=== PATIENT | female | born 1975 | race Caucasian/White ===

== ENCOUNTER → 2018-10-08 | Outpatient (CLI) | payer OTHER ==
[2018-10-08 10:45] LABS: HCT 42.6 % (34.0-46.0); HGB 13.7 gm/dL (11.4-16.0); MCHC 32.1 g/dL (31.0-37.0); MCV 87.1 fL (80.0-100.0); Mean Platelet Volume 6.6; Platelet Count 389 k/uL (150-450); RBC 4.89 m/uL (3.80-5.40); RDW 13.6 % (11.5-15.5); WBC 13.5 k/uL (3.8-10.6)
[2018-10-08 16:40] LABS: African American GFR (CKD) 106.1 (60.0-200.0); Albumin 4.4 g/dL (3.80-4.90); Albumin/Globulin Ratio 1.83 (1.60-3.17); Anion Gap 10.4 mmol/L (4.00-12.00); Calcium 9.4 mg/dL (8.7-10.3); Carbon Dioxide 23.6 mmol/L (21.6-31.8); Globulin 2.4 g/dL (1.6-3.3); LDL Cholesterol,Calculated 133.8 mg/dL (0.0-131.0); Potassium 4.3 mmol/L (3.5-5.5); Total Bilirubin 0.6 mg/dL (0.2-1.2); Total Protein 6.8 g/dL (6.2-8.2); VLDL Calculation 21.2 mg/dL (5.00-40.00)
== END | disposition home or self-care (01) ==
LOC: LABWHC1 10:08
PROVIDERS: ATTEND Internal Medicine
DX: E78.00 Pure hypercholesterolemia, unspecified (principal); M25.562 Pain in left knee; M25.561 Pain in right knee
CPT/HCPCS: 36415; 80053; 80061; 84443; 85027

== ENCOUNTER → 2018-11-10 | Outpatient (CLI) | payer OTHER ==
[2018-11-10 11:46] LABS: Basophils # (A) 0.1 k/uL (0-0.2); Basophils % (A) 1 %; Eosinophils # (A) 0.3 k/uL (0-0.7); Eosinophils % (A) 2 %; HCT 46.4 % (34.0-46.0); HGB 14.5 gm/dL (11.4-16.0); Lymphocytes # (A) 3.4 k/uL (1.0-4.8); Lymphocytes % (A) 23 %; MCHC 31.3 g/dL (31.0-37.0); MCV 89.6 fL (80.0-100.0); Mean Platelet Volume 6.9; Monocytes # (A) 0.4 k/uL (0-1.0); Monocytes % (A) 3 %; Neutrophils # (A) 10.1 k/uL (1.3-7.7); Neutrophils % (A) 71 %; Platelet Count 350 k/uL (150-450); RBC 5.18 m/uL (3.80-5.40); RDW 15.2 % (11.5-15.5); WBC 14.4 k/uL (3.8-10.6)
== END | disposition home or self-care (01) ==
LOC: LABWHC1 10:55
PROVIDERS: ATTEND Internal Medicine
DX: M25.561 Pain in right knee (principal)
CPT/HCPCS: 36415; 85025

== ENCOUNTER → 2018-11-30 | Outpatient (CLI) | payer OTHER ==
--- NOTE | 2018-11-30 22:39 | MR ---
EXAMINATION TYPE: MR knee LT wo con DATE OF EXAM: 11/30/2018 COMPARISON: NONE HISTORY: Pain for 10 years. Internal derangements and primary osteoarthritis per order. TECHNIQUE: Multiplanar, multisequence images of the knee is performed without IV contrast. FINDINGS: MEDIAL MENISCUS: Anterior and posterior horns are intact without tear. LATERAL MENISCUS: Anterior and posterior horns are intact without tear. CRUCIATE LIGAMENTS: The anterior and posterior cruciate ligaments are intact. Increased signal in the anterior cruciate ligament is present. COLLATERAL LIGAMENTS: The medial collateral ligament and lateral collateral ligament complex are inta ct and unremarkable. EXTENSOR MECHANISM: Visualized quadriceps and patellar tendons are intact. EFFUSION: No significant suprapatellar joint effusion. POPLITEAL CYST: No popliteal/perkins cyst. TRICOMPARTMENT SPACES: Moderate to severe narrowing patellofemoral compartment most prominent inferio rly with mild to moderate spurring. Mild spurring medial and lateral tibiofemoral compartments. CARTILAGE: Areas of full-thickness chondromalacia patella. BONE MARROW SIGNAL: Areas of heterogeneous increased T2 signal involving the patella fairly diffusely with more prominent posterior change axial image 19. OTHER: No additional significant abnormality is appreciated. IMPRESSION: 1. No meniscal or ligamentous tear is seen. 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 2. 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
== END | disposition home or self-care (01) ==
LOC: RADMRIMAIN 20:14
PROVIDERS: ATTEND Physician Assistant
DX: M17.0 Bilateral primary osteoarthritis of knee (principal)

== ENCOUNTER → 2018-12-08 | Outpatient (CLI) | payer OTHER ==
[2018-12-08 14:27] VITALS: BP 137/62; PULSE 80; RESP 16; TEMP 98.6; BMI 36.8
--- NOTE | 2018-12-08 15:35 | P.HPBAR ---
Bariatric H&P - History & Physicial H&P Date: 12/08/18 History & Physicial: Visit/CC: Initial Visit Patient initial contact: Initial weight: 101.86 kg Initial weight in pounds: 224.56 Height: 5 ft 5.5 in Initial BMI: 36.8 Last weight: Current weight: 101.86 kg Current weight in pounds: 224.56 Current BMI: 36.8 [place] body weight (based on NIH guidelines): 57.833 kg Excess body weight loss: 0.0% The patient is a 43 year-old F who presents for Bariatric Assessment. Patient presents as a new patient bariatric evaluation. Interested in sleeve gastrectomy at this time. Has struggled with her weight since her early use. Currently BMI 36.8. Patient complains of knee pain, arthritis, foot pain. Denies GERD symptoms. No DVT or dysphagia. Has trouble with portion control. Quit tobacco 2 years ago. He has been dieting for the last year or so has only been able to lose approximately 11 pounds. Review of Systems The patient denies any acute changes in vision or hearing, no dysphagia or odynophagia, no chest pain or shortness of breath, no dysuria or hematuria, no headache, no runny nose, no rectal bleeding or melena, no unexplained weight loss Past Medical History Past Medical History: Osteoarthritis (OA) Additional Past Medical History / Comment(s): bilateral osteoarthritis History of Any Multi-Drug Resistant Organisms: None Reported Past Surgical History: No Surgical Hx Reported Additional Past Surgical History / Comment(s): [place] teeth extractions with local anesthesia, Past Anesthesia/Blood Transfusion Reactions: No Reported Reaction Additional Past Anesthesia/Blood Transfusion Reaction / Comm: No blood transfusion to date, No hx of general anesthesia to date, No family hx of problems w/anesthesia to date Past Psychological History: No Psychological Hx Reported Smoking Status: Former smoker Past Alcohol Use History: Occasional Additional Past Alcohol Use History / Comment(s): quit smoking 2017 (started smoking around age 18 to age 22, restarted at age 24 til 41, 1ppd) Past Drug Use History: None Reported - Past Family History Father Family Medical History: Hypertension Mother Family Medical History: No Reported History Surgical - Exam Vital Signs Temp Pulse Resp BP 98.6 F 80 16 137/62 12/08/18 14:21 12/08/18 14:21 12/08/18 14:21 12/08/18 14:21 Physical exam: General: Well-developed, well-nourished HEENT: Normocephalic, sclerae nonicteric Abdomen: Nontender, nondistended Extremities: No edema Neuro: Alert and oriented Bariatric Assessment & Plan (1) Morbid obesity Narrative/Plan: Surgical options in the associate risks discussed in detail with the patient. Patient remains interested in sleeve gastrectomy. Patient does require 6 month supervised weight loss. She has already began that. Follow-up 2-3 months for EGD. Status: Acute Bariatric Checklist Checklist: Plan: Checklist: EGD: 1. Hiatal hernia: 2. H. Pylori: HgbA1c: Vitamin D: Smoking: Former smoker Primary care physician referral: Dr. Bolaños Psychiatry clearance: Cardiology clearance: Sleep study: Diet journal: VTE risk score: VTE risk level: Rehab needs at discharge:
[2018-12-08 16:13] LABS: HCT 45.4 % (34.0-46.0); MCH 28.8 pg (25.0-35.0); MCV 87.1 fL (80.0-100.0); Mean Platelet Volume 6.6; Platelet Count 394 k/uL (150-450); RBC 5.22 m/uL (3.80-5.40); RDW 13.9 % (11.5-15.5); WBC 17.6 k/uL (3.8-10.6)
[2018-12-09 00:25] LABS: African American GFR (CKD) 106.1 (60.0-200.0); Albumin 4.5 g/dL (3.80-4.90); Albumin/Globulin Ratio 1.73 (1.60-3.17); Anion Gap 8.5 mmol/L (4.00-12.00); Calcium 9.4 mg/dL (8.7-10.3); Carbon Dioxide 27.5 mmol/L (21.6-31.8); Globulin 2.6 g/dL (1.6-3.3); Potassium 3.8 mmol/L (3.5-5.5); Total Bilirubin 0.3 mg/dL (0.3-1.2); Total Protein 7.1 g/dL (6.2-8.2)
[2018-12-09 00:31] LABS: Folate, Serum 7.6 ng/mL; Vitamin D 25 Hydroxy 24.1 ng/mL (30.0-100.0)
[2018-12-09 00:54] LABS: Hemoglobin A1C 5.4 % (4.0-6.0)
== END ==
LOC: BARWHC3 13:47
PROVIDERS: ATTEND Surgery
DX: E66.01 Morbid (severe) obesity due to excess calories (principal); K90.89 Other intestinal malabsorption; E55.9 Vitamin D deficiency, unspecified; Z87.891 Personal history of nicotine dependence; Z68.36 Body mass index [BMI] 36.0-36.9, adult
CPT/HCPCS: 84425; 80053; 82607; 82746; 83540; 85027; 82306; 83036; 93005; 36415; G0463; 99201

== ENCOUNTER → 2019-01-04 | Outpatient (CLI) | payer OTHER ==
[2019-01-04 14:42] LABS: Basophils # (A) 0.1 k/uL (0-0.2); Basophils % (A) 1 %; Eosinophils # (A) 0.4 k/uL (0-0.7); Eosinophils % (A) 2 %; HCT 44.8 % (34.0-46.0); HGB 14.7 gm/dL (11.4-16.0); Lymphocytes % (A) 25 %; MCH 28.8 pg (25.0-35.0); MCHC 32.8 g/dL (31.0-37.0); MCV 87.8 fL (80.0-100.0); Mean Platelet Volume 6.6; Monocytes # (A) 0.5 k/uL (0-1.0); Monocytes % (A) 3 %; Neutrophils % (A) 68 %; Platelet Count 368 k/uL (150-450); RDW 13.9 % (11.5-15.5); WBC 16.2 k/uL (3.8-10.6)
[2019-01-04 20:08] LABS: Iron Saturation 17.09 (12.00-45.00)
[2019-01-04 20:16] LABS: Ferritin 65.4 ng/mL (10.0-291.0)
== END | disposition home or self-care (01) ==
LOC: LABWHC1 14:08
PROVIDERS: ATTEND Internal Medicine
DX: E61.1 Iron deficiency (principal); D72.828 Other elevated white blood cell count
CPT/HCPCS: 36415; 82728; 83540; 83550; 85025

== ENCOUNTER 2019-01-29 10:07 | Day surgery (SDC) | payer OTHER ==
[2019-01-28 09:13] VITALS: BMI 36.8
[2019-01-29 10:27] VITALS: TEMP 98.7
[2019-01-29] MEDS ORDERED: LIDOCAINE 1% 20 ML VIAL (10MG/ML) FOR IV START INTRADERMA ONE (10:34)
[2019-01-29] MEDS: LACTATED RINGERS 1,000 ML IV SCH ×2 (10:34→10:41)
[2019-01-29] MEDS ORDERED: PROPOFOL 10 MG/ML 20 ML VIAL IV ONE (10:45)
--- NOTE | 2019-01-29 10:56 | P.GSHP ---
History of Present Illness H&P Date: 01/29/19 Chief Complaint: GERD 43-year-old female known to our service. Patient being worked up for sleep gastrectomy. Mild reflux symptoms that time. No dysphagia. Past Medical History Past Medical History: Osteoarthritis (OA) Additional Past Medical History / Comment(s): bilateral osteoarthritis History of Any Multi-Drug Resistant Organisms: None Reported Additional Past Surgical History / Comment(s): [place] teeth extractions with local anesthesia, Past Anesthesia/Blood Transfusion Reactions: No Reported Reaction Additional Past Anesthesia/Blood Transfusion Reaction / Comment(s): No blood transfusion to date, Smoking Status: Former smoker - Past Family History Father Family Medical History: Hypertension Mother Family Medical History: Cancer Additional Family Medical History / Comment(s): SKIN CANCER Medications and Allergies Home Medications Medication Instructions Recorded Confirmed Type Ergocalciferol [Vitamin D2] 50,000 unit PO WE 01/28/19 01/29/19 History Terbinafine HCl [LamISIL] 250 mg PO DAILY 01/28/19 01/29/19 History Allergies Allergy/AdvReac Type Severity Reaction Status Date / Time No Known Allergies Allergy Verified 01/29/19 10:18 Surgical - Exam Vital Signs Temp Pulse Resp BP Pulse Ox 98.7 F 75 16 147/77 96 01/29/19 10:25 01/29/19 10:25 01/29/19 10:25 01/29/19 10:25 01/29/19 10:25 Physical exam: General: Well-developed, well-nourished HEENT: Normocephalic, sclerae nonicteric Abdomen: Nontender, nondistended Extremities: No edema Neuro: Alert and oriented Assessment and Plan (1) GERD (gastroesophageal reflux disease) Narrative/Plan: Will proceed with upper endoscopy at this time Current Visit: Yes Status: Acute Code(s): K21.9 - GASTRO-ESOPHAGEAL REFLUX DISEASE WITHOUT ESOPHAGITIS SNOMED Code(s): 733794815
--- NOTE | 2019-01-29 11:02 | P.PCN ---
Date of Procedure: 01/29/19 Procedure(s) Performed: Preoperative Dx: GERD, presurgical Postoperative Dx: Mild gastritis Procedure: EGD with Bx Anesthesia: Sedation Endoscopist: Dr. Aguayo Specimens: Antrum Endoscopic Procedure: The patient was on the endoscopy table in the left decubitus position. The Olympus gastroscope was inserted into the oropharynx and passed under direct visualization to the region of the third portion of the duodenum. From that point the scope was slowly withdrawn inspecting all surfaces carefully. There were no neoplastic inflammatory or polypoid lesions throughout the duodenum. The pylorus was widely patent. The stomach was carefully inspected. There was gastritis present. A biopsy of the antrum took place to rule out H. pylori. Retroflexion revealed a normal hiatus. The esophagus was then carefully examined. There were no neoplastic inflammatory or polypoid lesions throughout the visualized esophagus. The patient was then taken to the recovery room in stable condition per anesthesia guidelines. Recommendations: Await biopsy results. Follow-up bariatric clinic 6 weeks.
[2019-01-29 11:36] VITALS: RESP 18
[2019-01-29 11:37] VITALS: BP 129/80; PULSE 67
== END 2019-01-29 11:58 | disposition home or self-care (01) ==
LOC: ORWHC2ENDO 10:07
PROVIDERS: ATTEND Surgery
DX: K29.50 Unspecified chronic gastritis without bleeding (principal); K21.9 Gastro-esophageal reflux disease without esophagitis; E66.9 Obesity, unspecified; Z68.36 Body mass index [BMI] 36.0-36.9, adult; M19.90 Unspecified osteoarthritis, unspecified site; Z87.891 Personal history of nicotine dependence; Z82.49 Family history of ischemic heart disease and other diseases of the circulatory system; Z80.8 Family history of malignant neoplasm of other organs or systems; Z79.899 Other long term (current) drug therapy
CPT/HCPCS: 81025; 88305; 43239; J2704

== ENCOUNTER → 2019-02-22 | Outpatient (CLI) | payer OTHER ==
--- NOTE | 2019-02-22 09:45 | MM ---
Reason for exam: screening (asymptomatic). Baseline mammogram. History: Patient had first child at age 36. Physical Findings: Nurse did not find any significant physical abnormalities on exam. [facility] Diagnostic Mammo w CAD [place] Bilateral CC and MLO view(s) were taken. The breast tissue is heterogeneously dense. This may lower the sensitivity of mammography. Focal asymmetry left upper outer quadrant. These results were verbally communicated with the patient and result sheet given to the patient on 02/22/19. ASSESSMENT: Incomplete: need additional imaging evaluation, BI-RAD 0 RECOMMENDATION: Ultrasound of the left breast. (upper outer quadrant)
--- NOTE | 2019-02-22 09:49 | USB ---
Reason for exam: additional evaluation requested from abnormal screening. History: Patient had first child at age 36. Physical Findings: Breast exam preformed at baseline screening. US Breast Limited LT Left limited breast ultrasound including focal area of concern, retroareolar and axilla demonstrates no cystic or solid lesion seen. No suspicious sonographic finding. Dense tissue corresonds to the focal asymmetry. These results were verbally communicated with the patient and result sheet given to the patient on 02/22/19. ASSESSMENT: Negative, BI-RAD 1 RECOMMENDATION: Routine screening mammogram of both breasts in 1 year.
== END | disposition home or self-care (01) ==
LOC: RADMAMWWP 08:18
PROVIDERS: ATTEND Internal Medicine
DX: R92.8 Other abnormal and inconclusive findings on diagnostic imaging of breast (principal); N64.4 Mastodynia
CPT/HCPCS: 77066

== ENCOUNTER → 2019-03-16 | Outpatient (CLI) | payer OTHER ==
[2019-03-16 15:26] VITALS: BP 146/85; PULSE 87; RESP 16; TEMP 97.8; BMI 36.9
--- NOTE | 2019-03-16 16:03 | P.BASOAP ---
Subjective Progress Note Date: 03/16/19 Principal diagnosis: Morbid obesity Patient is known to our service. She is being worked up for upcoming sleeve gastrectomy. Underwent EGD 01/29 showing mild gastritis. She has had some very slight weight gain during her supervised weight loss program. He has not been cleared for surgery yet for that reason. Since last visit patient's weight 1 from 224.9-225.6. Has an upcoming a plane with her primary care physician next month. Does describe a chronic leukocytosis which has previously been worked up. Objective - Vital Signs Vital signs: Vital Signs Temp 97.8 F 03/16/19 15:19 Pulse 87 03/16/19 15:19 Resp 16 03/16/19 15:19 BP 146/85 03/16/19 15:19 Pulse Ox Intake & Output 03/15/19 03/16/19 03/16/19 18:59 06:59 18:59 Weight 102.228 kg - Exam Abdomen: Soft, nontender, nondistended Assessment/Plan (1) Morbid obesity Narrative/Plan: Patient still interested in sleeve gastrectomy. She and I went over the surgical consent form in detail. All questions answered. The risks of bleeding, infection, stenosis, stricture, leak, abscess, fistula formation, peritonitis, poor weight loss, reflux, vomiting, conversion to an open procedure, aborting sleeve gastrectomy, CA, PE, DVT, and were discussed. The patient understands and wishes to proceed. Plan: Date: 03/16/19 Initial Weight: 101.86 kg Initial BMI: 36.8 Current Weight: 102.228 kg Current BMI: 36.9 Type of Surgery: Vertical Sleeve Gastrectomy Total Volume in Band: Previous Volume: Volume Removed: Volume Added: Band Size:
== END ==
LOC: BARWHC3 15:03
PROVIDERS: ATTEND Surgery
DX: E66.01 Morbid (severe) obesity due to excess calories (principal); Z68.36 Body mass index [BMI] 36.0-36.9, adult
CPT/HCPCS: 99211

== ENCOUNTER 2019-04-07 08:53 | Emergency (ER) | payer OTHER ==
[2019-04-07 09:23] VITALS: RESP 18
[2019-04-07] MEDS ORDERED: AMOXIC-POT CLAV 875MG STARTER 2 EACH TABLET PO STA (10:04)
--- NOTE | 2019-04-07 10:07 | ED ---
General Adult HPI - General Chief complaint: Dental/Oral Stated complaint: Dental pain Time Seen by Provider: 04/07/19 09:48 Source: patient Mode of arrival: ambulatory Limitations: no limitations - History of Present Illness Initial comments: Dictation was produced using [employer] dictation software. please excuse any grammatical, word or spelling errors. Chief Complaint: 43-year-old female presents with dental pain. History of Present Illness: 43-year-old female she presents today with dental pain. She states that her left mandibular and left maxillary teeth have been hurting. She states that it's sensitively heat and cold. Patient was recently at the dentist and x-rays performed patient was discharged. She states she was wearing in ill fitting mouthpiece to sleep without night however she believes that exacerbated her symptoms. Denies any constitutional symptoms. Denies any trouble swallowing. No ear pain. The ROS documented in this emergency department record has been reviewed and confirmed by me. Those systems with pertinent positive or negative responses have been documented in the HPI. All other systems are other negative and/or noncontributory. PHYSICAL EXAM: General Impression: Alert and oriented x3, not in acute distress HEENT: Normocephalic atraumatic, extra-ocular movements intact, pupils equal and reactive to light bilaterally, mucous membranes moist, no gingival erythema or fluctuant masses Cardiovascular: Heart regular rate and rhythm, S1&S2 audible, no murmurs, rubs or gallops Chest: Lungs clear to auscultation bilaterally, no rhonchi, no wheeze, no rales Abdomen: Bowel sounds present, abdomen soft, non-tender, non-distended, no organomegaly Musculoskeletal: Pulses present and equal in all extremities, no peripheral edema Motor: no focal deficits noted Neurological: CN II-XII grossly intact, no focal motor or sensory deficits noted Skin: Intact with no visualized rashes Psych: Normal affect and mood ED course: 43 yo F presents with dental pain. On arrival are within acceptable limits. Physical examination is benign. Patient given prescription for antibiotics. Patient clear for discharge. She is told to follow up with dentist. Patient offered by mouth analgesia howover she refused because she did notnot feel that was necessary. - Related Data Home Medications Medication Instructions Recorded Confirmed Ergocalciferol [Vitamin D2] 50,000 unit PO WE 01/28/19 03/16/19 Terbinafine HCl [LamISIL] 250 mg PO DAILY 01/28/19 03/16/19 Previous Rx's Medication Instructions Recorded Amoxic-Pot Clav 875-125Mg 1 tab PO Q12HR 7 Days #14 tablet 04/07/19 [Augmentin 875-125] Allergies Allergy/AdvReac Type Severity Reaction Status Date / Time No Known Allergies Allergy Verified 04/07/19 09:22 Review of Systems ROS Statement: Those systems with pertinent positive or pertinent negative responses have been documented in the HPI. ROS Other: All systems not noted in ROS Statement are negative. Past Medical History Additional Past Medical History / Comment(s): bilateral osteoarthritis History of Any Multi-Drug Resistant Organisms: None Reported Additional Past Surgical History / Comment(s): [place] teeth extractions with local anesthesia, Additional Past Anesthesia/Blood Transfusion Reaction / Comment(s): No blood transfusion to date, No hx of general anesthesia to date, No family hx of problems w/anesthesia to date Past Psychological History: No Psychological Hx Reported Smoking Status: Former smoker Past Alcohol Use History: Occasional Past Drug Use History: None Reported - Past Family History Mother Family Medical History: Cancer General Exam Limitations: no limitations Course Vital Signs 04/07/19 09:19 Temperature 98.2 F Pulse Rate 78 Respiratory 18 Rate Blood Pressure 154/97 O2 Sat by Pulse 94 L Oximetry Disposition Clinical Impression: Pain, dental Disposition: HOME SELF-CARE Condition: Good Instructions (If sedation given, give patient instructions): Toothache (ED) Prescriptions: Amoxic-Pot Clav 875-125Mg [Augmentin 875-125] 1 tab PO Q12HR 7 Days #14 tablet Is patient prescribed a controlled substance at d/c from ED?: No Referrals: Misael Bolaños MD [Primary Care Provider] - 1-2 days Time of Disposition: 10:07
[2019-04-07 10:33] VITALS: BP 150/88; PULSE 80; TEMP 98
== END 2019-04-07 10:30 | disposition home or self-care (01) ==
LOC: EC 08:53
DX: K08.89 Other specified disorders of teeth and supporting structures (principal); Z79.899 Other long term (current) drug therapy; Z87.891 Personal history of nicotine dependence
CPT/HCPCS: 99282